=== PATIENT | male | born 1995 | race American Indian/Alaskan Native ===

== ENCOUNTER 2020-09-05 03:17 | Emergency (ER) | payer SELFPAY ==
[2020-09-05] MEDS ORDERED: levETIRAcetam 1000 MG/NS 0.75% 1,000 MG/100 ML BAG IV ONE ×2 (03:24)
[2020-09-05] MEDS ORDERED: SODIUM CHLORIDE 0.9% 1000 ML 1,000 ML IV ONE (03:24)
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
[2020-09-05 04:25] LABS: Basophils # (Auto) 0.1 K/mm3 (0.0-0.1); Basophils % (Auto) 0.3 % (0.0-1.8); Eosinophils % (Auto) 0.2 % (0.0-4.3); Hematocrit 46.2 % (35.5-45.6); Hemoglobin 15.5 gm/dl (11.8-15.2); Lymphocytes # (Auto) 1.1 K/mm3 (1.2-5.4); Lymphocytes % (Auto) 5.8 % (13.4-35.0); Mean Corpuscular HGB Conc 34 % (32-34); Mean Corpuscular Volume 94 fl (84-94); Monocytes % (Auto) 5.5 % (0.0-7.3); Platelet Count 153 K/mm3 (140-440); Red Blood Count 4.92 M/mm3 (3.65-5.03); Red Cell Distribution Width 12.9 % (13.2-15.2)
[2020-09-05 04:48] LABS: Alanine Aminotransferase 25 units/L (7-56); Albumin 4.5 g/dL (3.9-5); BUN/Creatinine Ratio 9; Blood Urea Nitrogen 10 mg/dL (9-20); Calcium 9.2 mg/dL (8.4-10.2); Hemolysis Index 11
--- NOTE | 2020-09-05 04:48 | Cat Scan Report ---
CT HEAD/BRAIN WO CON INDICATION / CLINICAL INFORMATION: Seizure. TECHNIQUE: All CT scans at this location are performed using CT dose reduction for ALARA by means of automated e xposure control. COMPARISON: None available. FINDINGS: There is mild motion artifact. The ventricular system is normal in size and configuration. No focal l esion or mass effect is seen. There is no evidence of intracranial hemorrhage or major vessel occlusi on. The calvarium is intact. The visualized paranasal sinuses and mastoid air cells are clear. IMPRESSION: No acute abnormality. Signer Name: Jared Stern MD Signed: 09/05/2020 4:43 AM Workstation Name: [id number]
[2020-09-05 05:04] VITALS: BP 131/84
[2020-09-05] MEDS ORDERED: DEXTROSE 50% IN WATER (25GM) 50 ML SYRINGE IV ONE (05:13)
== END 2020-09-05 05:28 ==
LOC: ED 03:17
DX: S09.90XA Unspecified injury of head, initial encounter (principal); G40.909 Epilepsy, unspecified, not intractable, without status epilepticus; E16.2 Hypoglycemia, unspecified
CPT/HCPCS: 36415; 70450; 80053; 82962; 85025; 96374; 96375; 99284; J1953; J7030; 80320; G0480

== ENCOUNTER 2021-01-07 21:52 | Emergency (ER) | payer SELFPAY ==
[2021-01-07 22:33] VITALS: BP 131/79
--- NOTE | 2021-01-07 23:07 | XRay Report ---
HISTORY:pain R wrist COMPARISON: None. TECHNIQUE: AP lateral and obliques views were obtained FINDINGS: Bones: No fracture or dislocation. Joint spaces: Maintained. Soft tissues: No significant abnormality. Additional findings: None. IMPRESSION: 1. No significant abnormality. Signer Name: Marquis Mccabe MD Signed: 01/07/2021 11:02 PM Workstation Name: [id number]
--- NOTE | 2021-01-07 23:33 | Emergency Department Report ---
Upper Extremity - HPI Chief Complaint: Extremity Injury, Upper Stated Complaint: RIGHT ARM PAIN Time Seen by Provider: 01/07/21 23:28 Upper Extremity: Left Wrist Occurred When: Today (around 4 pm) Mechanism: Other (Patient states that when he was opening his truck door, he felt a pop in his left wrist) Severity: mild, moderate Symptoms: Yes Pain with Movement, Yes Limited Range of Movement, No Deformity, No Numbness, No Weakness, No Swelling, No Bruising/Ecchymosis, No Laceration or Abrasion Other History: 25-year-old male presents to the ER today with complaints of left wrist pain. He states that when he was opening the door of his work truck, he felt a pop in his left wrist and since then he has been having pain in his wrist. He states that he is having worsening pain when he makes a fist and when he rotates his wrist. Reports swelling. He has not taken anything for pain since it occurred. He denies any prior injury to his wrist in the past. He reports no other symptoms at this time ED Review of Systems ROS: Stated complaint: RIGHT ARM PAIN Other details as noted in HPI Comment: All other systems reviewed and negative Constitutional: denies: chills, fever Musculoskeletal: joint swelling, arthralgia ED Past Medical Hx - Past Medical History Previous Medical History?: Yes Hx Seizures: Yes - Surgical History Past Surgical History?: No - Social History Smoking Status: Never Smoker Substance Use Type: None - Medications Home Medications: Home Medications Medication Instructions Recorded Confirmed Last Taken Type Ketorolac [Toradol] 10 mg PO Q6H PRN #20 tablet 01/07/21 Unknown Rx Upper Extremity Exam - Exam General: Vital signs noted. No distress. Alert and acting appropriately. Head and Torso: No HEENT Abnormality, No Neck Tenderness, No Chest/Lungs Abnormality Shoulder Exam: Yes Normal Range of Motion in Shoulder, No Shoulder Tenderness, No Clavicle Tenderness, No Shoulder Deformity, No AC Joint Tenderness Arm Exam: No Arm/Humerus Tenderness, No Arm Deformity Elbow: Yes Normal Range of Motion in Elbow, No Elbow Tenderness, No Elbow Deformity Forearm: No Forearm Tenderness, No Forearm Deformity, No Pain with Pronation, No Pain with Supination Wrist: Yes Wrist Tenderness (Mild ulnar and radial aspect of left wrist), No Normal ROM in Wrist (decrease extension, ulnar and radial deviation due to pain ), No Wrist Deformity, No Snuffbox Tenderness Hand: Yes Normal ROM in Digit(s), No Hand Tenderness, No Hand Deformity, No Digit Tenderness, No Digit(s) Deformity, No Tendon Dysfunction CMS Exam: Yes Normal Distal Pulses, Yes Normal Capillary Refill, Yes Normal Distal Sensation, No Broken Skin ED Course Vital Signs 01/07/21 22:32 Temperature 98.2 F Pulse Rate 69 Respiratory 16 Rate Blood Pressure 131/79 [Left] O2 Sat by Pulse 98 Oximetry ED Medical Decision Making - Radiology Data Radiology results: report reviewed Patient: ANTIONETTE CONCEPCION JR MR# : [id number] : 1995 Acct:[id number] Age/Sex: 25 / M ADM Date: 01/07/21 Loc: ED Attending Dr: Ordering Physician: UVALDO TORO NP Date of Service: 01/07/21 Procedure(s): XR wrist 3+V RT Accession Number(s): [id number] cc: UVALDO TORO NP Fluoro Time In Minutes: HISTORY:pain R wrist COMPARISON: None. TECHNIQUE: AP lateral and obliques views were obtained FINDINGS: Bones: No fracture or dislocation. Joint spaces: Maintained. Soft tissues: No significant abnormality. Additional findings: None. IMPRESSION: 1. No significant abnormality. Signer Name: Marquis Mccabe MD Signed: 01/07/2021 11:02 PM Workstation Name: [id number] Transcribed By: Dictated By: Marquis Mccabe MD Electronically Authenticated By: Marquis Mccabe MD Signed Date/Time: 01/07/212301 DD/ 01 TD/TT: Critical care attestation.: If time is entered above; I have spent that time in minutes in the direct care of this critically ill patient, excluding procedure time. ED Disposition Clinical Impression: Left wrist sprain Disposition: DC-01 TO HOME OR SELFCARE Is pt being admited?: No Does the pt Need Aspirin: No Condition: Stable Instructions: Wrist Sprain, Adult Additional Instructions: Use the velcro splint as discussed. Take the toradol as prescribed for pain. Rest, ice and limited use of wrist for the next 3-4 days. Follow-up with senior procurement specialist listed on your discharge instructions if your symptoms persist for another week. Prescriptions: Ketorolac [Toradol] 10 mg PO Q6H PRN #20 tablet PRN Reason: Pain Referrals: BLANK JIMENEZ MD [Staff Physician] - 7-10 days Forms: Work/School Release Form(ED) Time of Disposition: 23:33
[2021-01-08] MEDS ORDERED: traMADol 50 MG TAB PO ONE (02:15)
--- NOTE | 2021-01-08 02:22 | Emergency Department Report ---
ED Upper Extremity Inj HPI - General Chief Complaint: Extremity Injury, Upper Stated Complaint: RIGHT ARM PAIN Time Seen by Provider: 01/07/21 23:28 Source: patient Mode of arrival: Ambulatory Limitations: Physical Limitation - History of Present Illness Initial Comments: Patient is a 25-year-old -[place] male who presents for right wrist and hand pain x1 day. Patient states he was assisting in lifting a cylinder at work and awaited the cylinder hyperextended his wrist. He complains of 5/10 right wrist pain swelling and soreness. Pain is exacerbated by palpation and movement. Pain is relieved by nothing. There is no numbness or tingling. There is no open wound no abrasion no bleeding no deformity. - Related Data Previous Rx's Medication Instructions Recorded Last Taken Type Naproxen 500 mg PO BID PRN #30 tablet 01/08/21 Unknown Rx Allergies Allergy/AdvReac Type Severity Reaction Status Date / Time No Known Allergies Allergy Unverified 09/05/20 04:08 ED Review of Systems ROS: Stated complaint: RIGHT ARM PAIN Other details as noted in HPI Constitutional: denies: chills, fever Eyes: denies: eye pain, eye discharge, vision change ENT: denies: ear pain, throat pain Respiratory: denies: cough, shortness of breath, wheezing Cardiovascular: as per HPI Endocrine: no symptoms reported Gastrointestinal: denies: abdominal pain, nausea, diarrhea Genitourinary: denies: urgency, dysuria Musculoskeletal: joint swelling (right wrist and hand swelling ) Skin: denies: rash, lesions Neurological: denies: headache, weakness, paresthesias Psychiatric: denies: anxiety, depression Hematological/Lymphatic: denies: easy bleeding, easy bruising ED Past Medical Hx - Past Medical History Previous Medical History?: Yes Hx Seizures: Yes - Surgical History Past Surgical History?: No - Social History Smoking Status: Never Smoker Substance Use Type: None - Medications Home Medications: Home Medications Medication Instructions Recorded Confirmed Last Taken Type Naproxen 500 mg PO BID PRN #30 tablet 01/08/21 Unknown Rx ED Physical Exam - General Limitations: Physical Limitation General appearance: alert, in no apparent distress - Head Head exam: Present: atraumatic, normocephalic - Eye Eye exam: Present: normal appearance, EOMI Pupils: Present: normal accommodation - ENT ENT exam: Present: mucous membranes moist - Neck Neck exam: Present: normal inspection, full ROM. Absent: tenderness - Respiratory Respiratory exam: Present: normal lung sounds bilaterally, chest wall tenderness. Absent: respiratory distress - Cardiovascular Cardiovascular Exam: Present: regular rate, normal rhythm, normal heart sounds. 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 Absent: tenderness - Neurological Exam Neurological exam: Present: alert, oriented X3, CN II-XII intact, normal gait, reflexes normal. Absent: motor sensory deficit - Expanded Neurological Exam Expanded Patient oriented to: Present: person, place, time Speech: Present: fluid speech Motor strength exam: RUE: 5, LUE: 5, RLE: 5, LLE: 5 Best Eye Response ([place]): (4) open spontaneously Best Motor Response ([place]): (6) obeys commands Best Verbal Response ([place]): (5) oriented Nick Total: 15 - Psychiatric Psychiatric exam: Present: normal affect (His imaging is remains in his exam is ), normal mood - Skin Skin exam: Present: warm (Is revisiting exam is), dry, intact, normal color. Absent: rash ED Course Vital Signs 01/07/21 22:32 Temperature 98.2 F Pulse Rate 69 Respiratory 16 Rate Blood Pressure 131/79 [Left] O2 Sat by Pulse 98 Oximetry ED Medical Decision Making - Radiology Data Radiology results: report reviewed, image reviewed HISTORY:pain R wrist COMPARISON: None. TECHNIQUE: AP lateral and obliques views were obtained FINDINGS: Bones: No fracture or dislocation. Joint spaces: Maintained. Soft tissues: No significant abnormality. Additional findings: None. IMPRESSION: 1. No significant abnormality. Signer Name: Marquis Mccabe MD Signed: 01/07/2021 11:02 PM Workstation Name: [id number] Transcribed By: WG Dictated By: Marquis Mccabe MD Electronically Authenticated By: Marquis Mccabe MD Signed Date/Time: 01/07/212301 DD/ 01 TD/TT: - Medical Decision Making Wrist x-ray normal no fracture no soft tissue abnormality. Distal pulses are intact CRIME LAB TECHNICIAN less than 3 seconds airport maintenance laborer are equal. Plan Velcro wrist splint, rice therapy, follow-up with Ortho in 2 to 3 days if not improving. Patient mac balized agreement and understanding of discharge plan patient DC'd home in stable condition at this time. Critical care attestation.: If time is entered above; I have spent that time in minutes in the direct care of this critically ill patient, excluding procedure time. ED Disposition Clinical Impression: Right wrist sprain Qualifiers: Encounter type: initial encounter Qualified Code(s): S63.501A - Unspecified sprain of right wrist, initial encounter Disposition: DC-01 TO HOME OR SELFCARE Is pt being admited?: No Does the pt Need Aspirin: No Condition: Stable Instructions: Elastic Bandage and RICE Therapy, Wrist Sprain Rehab-SportsMed Additional Instructions: take medications as prescribed, RICE Therapy as directed, follow up with orthopedic doctor in 2-3 days. Prescriptions: Naproxen 500 mg PO BID PRN #30 tablet PRN Reason: pain Referrals: BLANK JIMENEZ MD [Staff Physician] - 3-5 Days Forms: Work/School Release Form(ED) Time of Disposition: 02:26
[2021-01-08] MEDS ORDERED: traMADol 50 MG TAB PO NR (02:35)
== END 2021-01-08 02:36 | disposition home or self-care (01) ==
LOC: ED 21:52
DX: S63.591A Other specified sprain of right wrist, initial encounter (principal); X50.0XXA Overexertion from strenuous movement or load, initial encounter; Y93.89 Activity, other specified; Y92.89 Other specified places as the place of occurrence of the external cause; Y99.8 Other external cause status; Z86.69 Personal history of other diseases of the nervous system and sense organs; Z79.899 Other long term (current) drug therapy
CPT/HCPCS: 99283